=== PATIENT | male | born 1955 | race African-American/Black ===

== ENCOUNTER 2024-01-12 13:31 | Observation (INO) ==
[2024-01-12 14:39] LABS: ABS Basophils 0.1 10^3/uL (0.0-0.1); ABS Eosinophils 0.1 10^3/uL (0.0-0.5); ABS Lymphocytes 1.3 10^3/uL (1.0-4.8); ABS Monocytes 0.7 10^3/uL (0.0-1.1); ABS Neutrophils 3.8 10^3/uL (1.5-7.6); Eosinophil % 1.2 %; Hematocrit 42.5 % (38-53); Hemoglobin 14.6 g/dL (13.2-16.3); Lymphocyte % 22.5 %; Mean Corpuscular Hemoglobin 31.4 pg (27-33); Mean Corpuscular Hgb Conc 34.4 g/dL (31-36); Mean Corpuscular Volume 91.3 fL (80-97); Mean Platelet Volume 7.9 fL (7.5-11.2); Nucleated Red Blood Cells % 0.1 %/100WBC (0.0-0.8); Platelet Count 216 10^3/uL (150-450); Red Blood Count 4.65 10^6/uL (4.06-5.63); Red Cell Distribution Width 13.7 % (12-17)
[2024-01-12 14:41] LABS: Urine Appearance Clear; Urine Bilirubin Negative (Negative); Urine Blood 2+ (Negative); Urine Color Yellow; Urine Glucose Negative (Negative); Urine Ketones Negative (Negative); Urine Nitrite Negative (Negative); Urine Protein Trace (Negative); Urine Specific Gravity 1.018 (1.002-1.030); Urine Urobilinogen Negative (Negative); Urine pH 6.5 (5.0-8.0)
[2024-01-12 14:44] LABS: Urine Bacteria Absent /HPF (Absent); Urine Red Blood Cell 3+(>10/hpf) /HPF (0-Trace); Urine Squamous Epithelial Cell Present /HPF (Absent); Urine White Blood Cell Trace(0-5/hpf) /HPF (0-Trace)
[2024-01-12 15:18] LABS: Albumin 4.1 g/dL (3.2-5.2); Albumin/Globulin Ratio 1.7 (1-3); Calcium 9.5 mg/dL (8.6-10.3); Globulin 2.4 g/dL (2-4); Potassium 3.9 mmol/L (3.5-5.0); Total Bilirubin 0.7 mg/dL (0.2-1.0); Total Protein 6.5 g/dL (6.4-8.9); eGFR CKD-EPI 82.5 (>60)
[2024-01-12 15:27] LABS: TSH Ultra Thyroid Stim Horm 0.98 mcIU/mL (0.34-5.60)
[2024-01-12] MEDS: Lactated Ringers 1000 ml BAG 1,000 ML IV ONE (15:35)
[2024-01-12 15:55] LABS: INR 1.06 (0.85-1.14)
[2024-01-12 16:18] LABS: High Sensitivity Troponin 1 Hr 7 pg/mL (<20)
[2024-01-12] MEDS: Iohexol 350 (CONTRAST) 500 ML MDV IV ONE (16:19)
[2024-01-12] MEDS: Lactated Ringers 1000 ml BAG 1,000 ML IV SCH (19:06)
[2024-01-13] MEDS: Enoxaparin 40 MG/0.4 ML SYR SUBCUT SCH (02:17)
[2024-01-13] MEDS: Sulfur Hexaflouride MICROSPHR 25 MG VIAL IV ONE (10:10)
[2024-01-13] MEDS ORDERED: Magnesium Hydroxide LIQ 30 ML UDC PO PRN (10:47)
[2024-01-13] MEDS ORDERED: Senna TAB 8.6 mg TAB PO PRN (10:47)
[2024-01-13] MEDS ORDERED: Polyethylene Glycol 3350 17 GM PACKET PO PRN (10:47)
[2024-01-13] MEDS: Magnesium Hydroxide LIQ 30 ML UDC PO SCH (11:26)
[2024-01-13 18:06] VITALS: BP 118/66
[2024-01-13] MEDS ORDERED: Latanoprost 0.005% 2.5 ml BTL BOTH EYES SCH (21:00)
== END 2024-01-13 18:30 | disposition home or self-care (01) ==
LOC: EDHOLD 13:31 → ED 13:31 → SUATTDRO 18:48 → MEDTELE 23:33
PROVIDERS: ADMIT Hospitalist; ATTEND Student in an Organized Health Care Education/Training Program